=== PATIENT | female | born 2000 | race Caucasian/White ===

== ENCOUNTER 2022-02-08 11:25 | Emergency (ER) | payer OTHER ==
[~2022-02-08] VITALS: Ht 162.6 cm; Wt 61.4 kg
[2022-02-08 11:27] VITALS: BP 131/84
== END 2022-02-08 14:32 | disposition home or self-care (01) ==
LOC: ER 11:26
DX: G44.009 Cluster headache syndrome, unspecified, not intractable (principal)
CPT/HCPCS: 70450; 82948; 99283; 99284